=== PATIENT | female | born 1990 | race Caucasian/White ===

== ENCOUNTER 2025-04-14 00:34 | Emergency (ER) | payer OTHER ==
[~2025-04-14] VITALS: Ht 172.7 cm; Wt 64.9 kg
[2025-04-14 00:44] VITALS: PULSE 54; RESP 18; TEMP 98
[2025-04-14 01:35] VITALS: BP 114/77; PULSE 54; RESP 18; TEMP 98; O2SAT 99
== END 2025-04-14 01:35 | disposition home or self-care (01) ==
LOC: FSED 00:38
DX: M25.511 Pain in right shoulder (principal); S46.811A Strain of other muscles, fascia and tendons at shoulder and upper arm level, right arm, initial encounter; X50.9XXA Other and unspecified overexertion or strenuous movements or postures, initial encounter; F41.9 Anxiety disorder, unspecified; F32.A Depression, unspecified
CPT/HCPCS: 99282